=== PATIENT | male | born 1985 | race Hispanic/Latino ===

== ENCOUNTER 2017-01-05 17:21 | Emergency (ER) | payer OTHER ==
[~2017-01-05] VITALS: Ht 185.4 cm; Wt 122.0 kg
[~2017-01-05 17:21] MED LIST: METFORMIN500 M1 PO; NAPROSYN500 MG PO
[2017-01-05] MEDS ORDERED: MOTRIN800 MG PO (18:11)
[2017-01-05 18:16] VITALS: BP 157/77
== END 2017-01-05 18:27 | disposition home or self-care (01) | DRG 313 ==
LOC: ED 17:21
DX: R07.89 Other chest pain (principal)

== ENCOUNTER 2017-02-20 14:34 | Emergency (ER) | payer OTHER ==
[~2017-02-20] VITALS: Ht 185.4 cm; Wt 120.5 kg
[~2017-02-20 14:34] MED LIST changes: +MOTRIN800 MG PO
[2017-02-20] MEDS ORDERED: KEFLEX500 M1 PO (16:31)
[2017-02-20 16:40] VITALS: BP 137/97
== END 2017-02-20 16:46 | disposition home or self-care (01) | DRG 153 ==
LOC: ED 14:34
DX: J06.9 Acute upper respiratory infection, unspecified (principal); E11.9 Type 2 diabetes mellitus without complications

== ENCOUNTER 2017-05-14 20:42 | Emergency (ER) | payer OTHER ==
[~2017-05-14] VITALS: Ht 185.4 cm; Wt 122.7 kg
[~2017-05-14 20:42] MED LIST changes: +KEFLEX500 M1 PO
[2017-05-14 21:13] LABS: HEMATOCRIT 41.8 % (39.0-50.0); HEMOGLOBIN 14.6 g/dl (14.0-18.0); IMMATURE GRANULOCYTES 0.5 % (0.0-1.0); MEAN CELL VOLUME 89.3 fL CALC (80.0-100.0); MEAN CORPUSCULAR HGB 31.2 pG CALC (26.0-32.0); MEAN CORPUSCULAR HGB CONC 34.9 g/L CALC (32.0-36.0); NEUT# 5.76 thou/uL (1.82-7.42); RED BLOOD COUNT 4.68 mill/uL (4.70-6.10); RED CELL DISTRI WIDTH 12.2 % (11.5-15.5)
[2017-05-14 21:37] LABS: ALBUMIN 4.9 g/dL (3.2-5.0); ALKALINE PHOSPHATASE 94 u/l (38-126); AMYLASE 48 u/l (30-110); ANION GAP 18 (6-22 (CALC)); BILIRUBIN, TOTAL 0.4 mg/dL (0.0-1.4); BUN 16 mg/dL (9-20); BUN/CREATININE RATIO 19 (12-20 (CALC)); CALCIUM 9.9 mg/dL (8.4-10.2); CARBON DIOXIDE 24 mmol/l (22-30); CHLORIDE 104 mmol/l (95-108); CREATININE 0.8 mg/dL (0.7-1.3); GFR > 60 ML/MIN (>=60 (CALC)); GFR FOR AFR.AMER. > 60 ML/MIN (>=60 (CALC)); GLUCOSE 95 mg/dL (75-110); LIPASE 85 u/l (23-300); POTASSIUM 4.3 mmol/l (3.5-5.1); SGOT/AST 50 u/l (17-59); SGPT/ALT 95 u/l (21-72); SODIUM 142 mmol/l (137-146); TOTAL PROTEIN 7.8 g/dL (6.3-8.2)
[2017-05-14 21:48] LABS: MYOGLOBIN 52 ng/mL (0 - 121)
[2017-05-14 22:10] VITALS: BP 122/77
== END 2017-05-14 22:10 | disposition home or self-care (01) | DRG 392 ==
LOC: ED 20:42
PROVIDERS: Emergency Medicine
DX: R10.11 Right upper quadrant pain (principal); R00.1 Bradycardia, unspecified; E11.9 Type 2 diabetes mellitus without complications; Z79.84 Long term (current) use of oral hypoglycemic drugs